=== PATIENT | female | born 1955 | race Caucasian/White ===

== ENCOUNTER 2023-07-01 10:45 | Day surgery (SDC) | payer OTHER, BC ==
[2023-07-01 11:08] LABS: Potassium 4.2 mEq/L (3.5-5.1)
[2023-07-01] MEDS ORDERED: Ringers Lactate 1,000 ML IV ONE (11:09)
[2023-07-01] MEDS ORDERED: LIDOCAINE 1% MPF 5 ML VIAL ONE (11:58)
[2023-07-01] MEDS ORDERED: propofoL 200 MG/20 ML VIAL IV ONE (11:58)
--- NOTE | 2023-07-01 12:49 | EKG ---
Test Date: 2023-07-01 Test Time: 11:36:06 Gymnastic Teacher: JOCELYNN MEASUREMENT RESULTS: Intervals: Rate: 66 TX: 158 QRSD: 72 QT: 444 QTc: 465 [place]: P: 76 TX: 158 QRS: 52 T: 39 INTERPRETIVE STATEMENTS: Normal sinus rhythm Possible Left atrial enlargement Borderline ECG No previous ECG available for comparison Electronically Signed On 07-01-23 12:48:33 ACCOUNTS RECEIVABLE ADMINISTRATOR by Noam Montez
[2023-07-01 14:11] VITALS: TEMP 97.3
[2023-07-01 14:17] VITALS: BP 133/45; O2SAT 100
== END 2023-07-01 13:36 | disposition home or self-care (01) ==
LOC: OR 10:45
PROVIDERS: ATTEND Surgery
PROC: 0DBH8ZX Excision of Cecum, Via Natural or Artificial Opening Endoscopic, Diagnostic (ICD-10-PCS; principal; 2023-07-01 12:30)
DX: R10.12 Left upper quadrant pain (principal); K52.9 Noninfective gastroenteritis and colitis, unspecified; K64.8 Other hemorrhoids; K63.9 Disease of intestine, unspecified; Q43.8 Other specified congenital malformations of intestine
CPT/HCPCS: 93005; 80048; 36415; 88305; 45380; J2704; J2001; J7120

== ENCOUNTER → 2024-08-08 | Day surgery (SDC) | payer OTHER, BC ==
[2024-08-05 12:39] LABS: Absolute Eosinophils 0.1 K/uL (0-0.5); Absolute Lymphocytes (CBC) 1.1 K/uL (0.7-4.9); Absolute Monocytes 0.7 K/uL (0.1-1.3); Absolute Neutrophil 6.3 K/uL (1.8-8.0); Basophils % 0.5 % (0-1.3); Eosinophils % 0.6 % (0-4.4); Hematocrit 39.2 % (36.0-45.0); Hemoglobin 13.3 g/dL (12.0-15.0); Lymphocytes % 13.4 % (15.3-44.8); MCH 31.1 pg (27.0-35.0); MCHC 33.9 g/dL (32.0-36.0); MCV 91.7 fL (80-100); MPV 9.2 fL (7.6-11.3); Monocytes % 8.1 % (3.3-12.3); Neutrophils % 77.4 % (41.7-73.7); Platelets 247 thou/uL (152-406); RBC Red Blood Cell Count 4.27 M/uL (3.86-4.86)
[2024-08-05 12:47] LABS: Anion Gap 6.3 mEq/L (5.0-15.0); Potassium 4.3 mEq/L (3.5-5.1)
--- NOTE | 2024-08-05 15:06 | EKG ---
Test Date: 2024-08-05 Test Time: 12:53:33 Translator: ADRIANNE MEASUREMENT RESULTS: Intervals: Rate: 62 OR: 150 QRSD: 64 QT: 396 QTc: 401 [place]: P: 77 OR: 150 QRS: 77 T: 41 INTERPRETIVE STATEMENTS: Normal sinus rhythm Low voltage QRS Borderline ECG Compared to ECG 07/01/2023 11:36:06 Low QRS voltage now present Electronically Signed On 08-05-24 15:05:28 SENIOR MAINTENANCE MECHANIC by Noam Montez
[~2024-08-08] MED LIST: EPHEDRINE SULF 50 MG/ML VIAL ONE; LIDOCAINE 1% MPF 5 ML VIAL ONE; propofoL 200 MG/20 ML VIAL IV ONE
[2024-08-08] MEDS: Ringers Lactate 1,000 ML IV ONE (11:14)
[2024-08-08 12:22] VITALS: O2SAT 100
[2024-08-08 12:33] VITALS: BP 127/57; TEMP 98.1
== END ==
LOC: OR 10:19
PROVIDERS: ATTEND Surgery
PROC: 0DBH8ZX Excision of Cecum, Via Natural or Artificial Opening Endoscopic, Diagnostic (ICD-10-PCS; principal; 2024-08-08 12:00)
DX: Z12.11 Encounter for screening for malignant neoplasm of colon (principal); K64.8 Other hemorrhoids; K52.9 Noninfective gastroenteritis and colitis, unspecified; Z86.0100 Personal history of colon polyps, unspecified
CPT/HCPCS: 93005; 85025; 80048; 36415; 45380; J2704; J2003; J7120; 88305